=== PATIENT | male | born 1960 | race Caucasian/White ===

== ENCOUNTER 2021-06-10 16:49 | Emergency (ER) | payer OTHER ==
[2021-06-10] MEDS ORDERED: Hydromorphone 1 mg/ml Injection IV ONE ×3 (17:09→19:11)
[2021-06-10] MEDS ORDERED: Hydromorphone 1 mg/ml Injection ONE ×3 (17:11→19:16)
[2021-06-10] MEDS ORDERED: Zofran 4 MG/2 ML VIAL ONE (17:12)
[2021-06-10] MEDS ORDERED: Zofran 4 MG/2 ML VIAL IV ONE (17:12)
[2021-06-10 17:23] LABS: Absolute Neutrophil Ct (ANC) 4.94 (1.4-6.9); BASOPHIL % 0.3 % (0.0-0.4); Basophil (Absolute #) 0.03 (0-0.4); Eosinophil % 0.7 % (0.00-5.0); Eosinophil (Absolute #) 0.07 (0-0.5); Hematocrit 41.8 % (42-50); Hemoglobin 13.7 gm/dl (12.5-18.0); Lymphocyte (Absolute #) 3.52 (1.0-4.6); Lymphocytes % 37.6 % (24.0-44.0); Mean Cell Volume 96.5 fl (78-100); Mean Corpuscular Hemoglobin 31.6 pg (26-32); Mean Corpuscular Hgb Concent. 32.8 g/dl (32-36); Mean Platelet Volume 8.7 fl (7.5-11.0); Monocyte (Absolute #) 0.81 (0.0-1.3); Monocytes % 8.6 % (0.0-12.0); Neutrophil % 52.8 % (36.0-66.0); Platelet Count 353 K/mm3 (150-450); Red Blood Count 4.33 M/mm3 (4.1-5.6); Red Cell Distribution Width 13.8 % (11.5-14.0); White Blood Count 9.4 K/mm3 (4.0-10.5)
[2021-06-10 17:40] LABS: ALBUMIN 4.6 g/dL (3.5-5.0); ALKALINE PHOSPHATASE 142 U/L (38-126); ANION GAP 13.5 MEQ/L (5-15); BLOOD UREA NITROGEN 15 mg/dL (9-20); CHLORIDE 107 mmol/L (98-107); Calcium 9.3 mg/dL (8.4-10.2); Carbon Dioxide 23 mmol/L (22-30); Creatinine 1 1.13 mg/dL (0.66-1.25); EST GLOMERULAR FILTRATION RATE > 60.0 ML/MIN; Glucose 142 mg/dL (74-106); SGOT/AST 29 U/L (17-59); SGPT/ALT 11 U/L (0-50); SODIUM 140 mmol/L (137-145); Total Protein 7.4 g/dL (6.3-8.2)
[2021-06-10 18:16] VITALS: O2SAT 97
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
[2021-06-10 20:16] VITALS: BP 142/96; PULSE 64
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
== END 2021-06-10 20:16 | disposition home or self-care (01) ==
LOC: ED 16:49
DX: S42.031A Displaced fracture of lateral end of right clavicle, initial encounter for closed fracture (principal); V29.88XA Motorcycle rider (driver) (passenger) injured in other specified transport accidents, initial encounter; Y93.89 Activity, other specified; Y92.89 Other specified places as the place of occurrence of the external cause; S20.412A Abrasion of left back wall of thorax, initial encounter; M25.512 Pain in left shoulder; M79.671 Pain in right foot
CPT/HCPCS: 36415; 70450; 72125; 73030; 73630; 80053; 85025; 96374; 96375; 96376; 99284; J1170; J2405; L3650; L4386

== ENCOUNTER 2022-04-04 09:09 | Emergency (ER) | payer OTHER ==
[2022-04-04] MEDS ORDERED: SUBLIMAZE 100 MCG/2 ML IV ONE ×2 (09:21→12:32)
[2022-04-04] MEDS ORDERED: Zofran 4 MG/2 ML VIAL IV ONE (09:22)
[2022-04-04] MEDS ORDERED: Sodium Chloride 0.9% 1000 ML 1,000 ML IV STA ×2 (09:25→13:46)
[2022-04-04] MEDS ORDERED: Zofran 4 MG/2 ML VIAL ONE (09:31)
[2022-04-04] MEDS ORDERED: SUBLIMAZE 100 MCG/2 ML ONE ×2 (09:32→12:25)
[2022-04-04] MEDS ORDERED: Sodium Chloride 0.9% 1000 ML 1,000 ML ONE ×2 (09:32→13:45)
[2022-04-04 09:42] LABS: Hematocrit 41.7 % (42-50); Hemoglobin 13.4 g/dL (12.5-18.0); Mean Cell Volume 95.9 fL (78-100); Mean Corpuscular Hemoglobin 30.8 pg (26-32); Mean Corpuscular Hgb Concent. 32.1 g/dL (32-36); Platelet Count 582 x10^3/uL (150-450); Red Blood Count 4.35 x10^6/uL (4.1-5.6); Red Cell Distribution Width 13.8 % (11.5-14.0); White Blood Count 10.2 x10^3/uL (4.0-10.5)
--- NOTE | 2022-04-04 09:45 | ERPHSYRPT ---
- History of Present Illness Time Seen by Provider: 04/04/22 09:15 Historian: patient, family Exam Limitations: no limitations Patient Subjective Stated Complaint: abd pain Triage Nursing Assessment: pt to ED abd pain onset this morning that woke him from sleep. pt just DC from [facility] last week with Abd Aortic Thrombis and was stented during that stay. scheduled for f/u appt and imaging April 17. pt has been without complaints until this morning. mild constipation 2 days ago, relieved with stool softeners. LBM last night. rates 10/10 when pain comes, 0/10 between. intermittent every few minutes with no preceding factors. Physician History: Patient is a 61-year-old male who presents with colicky severe abdominal pain. Approximately a week ago he was at [facility] where he underwent an embo lectomy of the superior mesenteric artery and the subsequent placement of a stent. He was doing well until this morning when he awoke with episodes of severe epigastric and abdominal pain. The does report that at the time he left there was still some blockages and some clots remaining. Him between episodes of pain he is relatively comfortable. He had his last bowel movement last evening after some stool softeners. He has passed no gas or had any bowel movement this morning per the patient. He does have some nausea but no vomiting. Timing/Duration: today Activities at Onset: none Abdominal Pain Onset Location: epigastric, generalized abdomen Pain Radiation: no radiation Severity of Pain-Max: severe Severity of Pain-Current: severe Modifying Factors: Improves With: nothing Associated Symptoms: nausea Previous symptoms: same symptoms as today Allergies/Adverse Reactions: No Known Drug Allergies Allergy (Unverified 06/10/21 17:09) Home Medications: Acetaminophen 500 mg PO DAILY PRN PRN 04/04/22 [History] Albuterol Sulfate [Albuterol Sulfate Hfa] 8.5 gm IH BID PRN 04/04/22 [History] Atorvastatin Calcium [Lipitor] 10 mg PO DAILY 04/04/22 [History] Calcium Carbonate [Tums] 200 mg PO DAILY PRN PRN 04/04/22 [History] Clopidogrel Bisulfate [Plavix] 75 mg PO DAILY 04/04/22 [History] PANTOPRAZOLE 40 mg Tablet [Protonix 40MG Tablet] 40 mg PO DAILY 04/04/22 [History] Rivaroxaban 10 mg Tablet [Xarelto 10 mg Tablet] 20 mg PO DAILY 04/04/22 [History] Rivaroxaban [Xarelto] 15 mg PO BID 04/04/22 [History] Hx Tetanus, Diphtheria Vaccination/Date Given: Yes Hx Influenza Vaccination/Date Given: Yes Hx Pneumococcal Vaccination/Date Given: No Immunizations Up to Date: Yes Travel Risk - International Travel Have you traveled outside of the country in past 3 weeks: No - Coronavirus Screening Are you exhibiting any of the following symptoms?: No Close contact with a COVID-19 positive Pt in past 14-21 Days: No - Vaccine Status Have you recieved a Covid-19 vaccination: Yes 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 - Vaccination Dates Date of 2cond Vaccination (if applicable): 2020 - Review of Systems Constitutional: No Fever, No Chills Eyes: No Symptoms Ears, Nose, & Throat: No Symptoms Respiratory: No Cough, No Dyspnea Cardiac: No Chest Pain, No Edema, No Syncope Abdominal/Gastrointestinal: Abdominal Pain, Nausea, No Vomiting, No Diarrhea Genitourinary Symptoms: No Dysuria Musculoskeletal: No Back Pain, No Neck Pain Skin: No Rash Neurological: No Dizziness, No Focal Weakness, No Sensory Changes Psychological: No Symptoms Endocrine: No Symptoms All Other Systems: Reviewed and Negative - Past Medical History Pertinent Past Medical History: Yes Neurological History: No Pertinent History ENT History: No Pertinent History Cardiac History: High Cholesterol, Peripheral Vascular Disease Respiratory History: COPD Endocrine Medical History: No Pertinent History Musculoskeletal History: Fractures GI Medical History: Other Other Medical History: PMHX: REPORTS PROBLEMS WITH CIRCULATION IN LEFT LOWER LEG. abd aortic thrombus- stented 03/2022 - Past Surgical History Past Surgical History: Yes Gastrointestinal: Other Musculoskeletal: Orthopedic Surgery Other Surgical History: L shoulder procedure 2020. abd stent (mesentary) x1 and embolectomy - Social History Smoking Status: Former smoker Exposure to second hand smoke: Yes Drug Use: none Patient Lives Alone: No - Nursing Vital Signs Nursing Vital Signs: Initial Vital Signs Temperature 97.7 F 04/04/22 09:14 Pulse Rate 97 H 04/04/22 09:14 Respiratory Rate 25 H 04/04/22 09:14 O2 Sat by Pulse Oximetry 100 04/04/22 09:14 Pain Scale Pain Intensity 0 - Physical Exam General Appearance: moderate distress Eye Exam: PERRL/EOMI, eyes nml inspection Ears, Nose, Throat Exam: normal ENT inspection, pharynx normal, moist mucous membranes Neck Exam: normal inspection, non-tender, supple, full range of motion Respiratory Exam: normal breath sounds Cardiovascular Exam: regular rate/rhythm, normal heart sounds Gastrointestinal/Abdomen Exam: tenderness, distention, guarding, rebound, other (Bowel sounds are present with periods of rushes) Back Exam: normal inspection Extremity Exam: normal inspection Neurologic Exam: oriented x 3, cooperative SpO2: 100 - Course Nursing assessment & vital signs reviewed: Yes EKG Interpreted by Me: RATE (99), NORMAL AXIS, NORMAL INTERVALS, NORMAL QRS, NORMAL ST-T - CT Exams Abdomen/Pelvis CT Interpretation: Other (Dilated loops of small bowel fluid-filled with circumferential wall thickening and enhancement rule out ileus versus gastroenteritis) Ordered Tests: Active Orders 24 hr Category Date Time Status EKG-ER Only STAT Care 04/04/22 09:20 Active IV Insertion STAT Care 04/04/22 09:25 Active ABDOMEN AND PELVIS W CONTRAST [CT] Stat Exams 04/04/22 09:19 Completed AMYLASE Stat Lab 04/04/22 09:25 Completed CBC W DIFF Stat Lab 04/04/22 09:25 Completed CMP Stat Lab 04/04/22 09:25 Completed LIPASE Stat Lab 04/04/22 09:25 Completed Lactic Acid Stat Lab 04/04/22 09:50 Completed Manual Differential NC Stat Lab 04/04/22 09:25 Completed PROTIME WITH INR Stat Lab 04/04/22 09:25 Completed TROPONIN Q3H Lab 04/04/22 09:25 Completed TROPONIN Q3H Lab 04/04/22 12:30 Ordered TROPONIN Q3H Lab 04/04/22 15:30 Ordered TROPONIN Q3H Lab 04/04/22 18:30 Ordered TROPONIN Q3H Lab 04/04/22 21:30 Ordered UA W/RFX CULTURE Stat Lab 04/04/22 Ordered Medication Summary Discontinued Medications Generic Name Dose Route Start Last Admin Trade Name Freq PRN Reason Stop Dose Admin Fentanyl Citrate 100 mcg 04/04/22 09:21 04/04/22 09:33 Fentanyl Citrate 100 Mcg/2 Ml* Vial IV 04/04/22 09:22 100 mcg STAT ONE Administration Fentanyl Citrate Confirm 04/04/22 09:32 Fentanyl Citrate 100 Mcg/2 Ml* Vial Administered 04/04/22 09:33 Dose 100 mcg .ROUTE .STK-MED ONE Sodium Chloride 1,000 mls @ 999 mls/hr 04/04/22 09:25 04/04/22 10:58 Sodium Chloride 0.9% 1000 Ml IV 04/04/22 10:25 Infused .Q1H1M STA Infusion Sodium Chloride Confirm 04/04/22 09:32 Sodium Chloride 0.9% 1000 Ml Administered 04/04/22 09:33 Dose 1,000 mls @ ud .ROUTE .STK-MED ONE Ondansetron HCl 4 mg 04/04/22 09:22 04/04/22 09:33 Ondansetron Hcl 4 Mg/2 Ml Vial IV 04/04/22 09:23 4 mg STAT ONE Administration Ondansetron HCl Confirm 04/04/22 09:31 Ondansetron Hcl 4 Mg/2 Ml Vial Administered 04/04/22 09:32 Dose 4 mg .ROUTE .STK-MED ONE Lab/Rad Data: Laboratory Result Diagrams 04/04/22 09:25 04/04/22 09:25 Laboratory Results 04/04/22 04/04/22 04/04/22 Range/Units 09:50 09:25 09:25 WBC (4.0-10.5) x10^3/uL RBC (4.1-5.6) x10^6/uL Hgb (12.5-18.0) g/dL Hct (42-50) % MCV (78-100) fL MCH (26-32) pg MCHC (32-36) g/dL RDW (11.5-14.0) % Plt Count (150-450) x10^3/uL MPV (7.5-11.0) fL Segmented Neutrophils (36.-66.) % Lymphocytes (Manual) (24-44) % Monocytes (Manual) (0.0-12.0) % Atypical Lymphocytes % Platelet Estimate (NORMAL) RBC Morphology Anisocytosis PT 13.5 H (9.4-12.5) SECONDS INR 1.30 (0.8-3.0) Sodium (137-145) mmol/L Potassium (3.5-5.1) mmol/L Chloride (98-107) mmol/L Carbon Dioxide (22-30) mmol/L Anion Gap (5-15) MEQ/L BUN (9-20) mg/dL Creatinine (0.66-1.25) mg/dL Estimated GFR ML/MIN Glucose (74-106) mg/dL Lactic Acid 1.8 (0.4-2.0) Calcium (8.4-10.2) mg/dL Total Bilirubin (0.2-1.3) mg/dL AST (17-59) U/L ALT (0-50) U/L Alkaline Phosphatase (38-126) U/L Troponin I < 0.012 (0.000-0.034) ng/mL Serum Total Protein (6.3-8.2) g/dL Albumin (3.5-5.0) g/dL Amylase (30-110) U/L Lipase (23-300) U/L 04/04/22 04/04/22 Range/Units 09:25 09:25 WBC 10.2 (4.0-10.5) x10^3/uL RBC 4.35 (4.1-5.6) x10^6/uL Hgb 13.4 (12.5-18.0) g/dL Hct 41.7 L (42-50) % MCV 95.9 (78-100) fL MCH 30.8 (26-32) pg MCHC 32.1 (32-36) g/dL RDW 13.8 (11.5-14.0) % Plt Count 582 H (150-450) x10^3/uL MPV 8.0 (7.5-11.0) fL Segmented Neutrophils 47 (36.-66.) % Lymphocytes (Manual) 43 (24-44) % Monocytes (Manual) 7 (0.0-12.0) % Atypical Lymphocytes 3 % Platelet Estimate INCREASED (NORMAL) RBC Morphology ABNORMAL Anisocytosis 1+ PT (9.4-12.5) SECONDS INR (0.8-3.0) Sodium 139 (137-145) mmol/L Potassium 5.0 (3.5-5.1) mmol/L Chloride 104 (98-107) mmol/L Carbon Dioxide 26 (22-30) mmol/L Anion Gap 13.6 (5-15) MEQ/L BUN 10 (9-20) mg/dL Creatinine 1.05 (0.66-1.25) mg/dL Estimated GFR > 60.0 ML/MIN Glucose 104 (74-106) mg/dL Lactic Acid (0.4-2.0) Calcium 9.3 (8.4-10.2) mg/dL Total Bilirubin 0.70 (0.2-1.3) mg/dL AST 29 (17-59) U/L ALT 21 (0-50) U/L Alkaline Phosphatase 126 (38-126) U/L Troponin I (0.000-0.034) ng/mL Serum Total Protein 6.3 (6.3-8.2) g/dL Albumin 3.5 (3.5-5.0) g/dL Amylase 87 (30-110) U/L Lipase 107 (23-300) U/L - Progress Progress: unchanged - Departure Departure Disposition: Transfer (Since the patient had a procedure recently at [facility] involving stenting of the superior mesenteric artery and now has pain and perhaps an ileus in that area we elected to call and transfer the patient there of the general surgery service excepting) Clinical Impression: Abdominal pain Condition: Fair Critical Care Time: No Referrals: HOSPITAL,'S [Primary Care Provider] - Follow up/PCP as directed
[2022-04-04 10:00] LABS: ALBUMIN 3.5 g/dL (3.5-5.0); BLOOD UREA NITROGEN 10 mg/dL (9-20); CHLORIDE 104 mmol/L (98-107); Calcium 9.3 mg/dL (8.4-10.2); Carbon Dioxide 26 mmol/L (22-30); Creatinine 1 1.05 mg/dL (0.66-1.25); EST GLOMERULAR FILTRATION RATE > 60.0 ML/MIN; Glucose 104 mg/dL (74-106); SGOT/AST 29 U/L (17-59); SGPT/ALT 21 U/L (0-50); SODIUM 139 mmol/L (137-145); Total Protein 6.3 g/dL (6.3-8.2)
[2022-04-04 10:01] LABS: ALKALINE PHOSPHATASE 126 U/L (38-126); AMYLASE 87 U/L (30-110); ANION GAP 13.6 MEQ/L (5-15); LIPASE 107 U/L (23-300)
--- NOTE | 2022-04-04 10:23 | XRAY ---
Indication: Abdomen pain. Patient reports recent SMA embolectomy with stent placement one week ago. Multiple contiguous axial images obtained through the abdomen and pelvis using 80 cc Isovue 370 contrast. Comparison: None Lung bases demonstrates pulmonary emphysema with minimal bibasilar fibrosis/scarring. No infiltrate or effusion. Heart not enlarged. Small hiatal hernia. Noncontrasted stomach and bowel loops appear nonobstructed. Several ileal and lesser degree jejunal bowel loops are mildly fluid distended up to 3.3 cm diameter with mild circumferential wall thickening/enhancement and fluid leveling, ileus versus enteritis. Normal appendix. No free fluid/air or portal air. Right lobe liver demonstrates 2 hemangiomas, largest measuring at least 5.5 x 2.8 cm. Tiny splenic calcified granulomas. Remaining liver, gallbladder, pancreas, spleen, adrenal glands, kidneys, ureters, and bladder are unremarkable. Mild scattered aortoiliac calcifications without AAA. Patent SMA stent graft. No AAA or pathologic retroperitoneal lymphadenopathy. Osseous structures intact with minimal degenerative changes throughout the thoracolumbar spine. Impression: 1. Fluid distended small bowel loops with circumferential wall thickening/enhancement as detailed. Rule out ileus versus enteritis. 2. Scattered arteriosclerotic disease with patent SMA stent graft. 3. Incidental small hiatal hernia, hepatic hemangiomas, degenerative spondylosis, and old granulomatous disease.
[2022-04-04 10:32] LABS: INR 1.3 (0.8-3.0); PROTIME 13.5 SECONDS (9.4-12.5)
[2022-04-04 10:58] LABS: ANISOCYTOSIS 1+; ATYPICAL LYMPHS 3 %; Lymphocytes 43 % (24-44); Monocyte 7 % (0.0-12.0); Platelet Estimate INCREASED (NORMAL); Total Cells Counted 100
[2022-04-04 12:44] LABS: Appearance CLEAR (CLEAR); Bacteria RARE /HPF (NEGATIVE); Bilirubin NEGATIVE (NEGATIVE); Glucose NEGATIVE (NEGATIVE); Ketones NEGATIVE (NEGATIVE); Mucus SLIGHT /HPF (NEGATIVE)
[2022-04-04 12:45] LABS: Dipstick done @ ? MAIN LAB; Nitrite NEGATIVE (NEGATIVE); Protein,Urine Dip NEGATIVE (Negative); RBC NEGATIVE Ery/ul (0-5); Urine Cultured Indicated? NO; Urobilinogen 0.2 mg/dL (0-1)
[2022-04-04 13:11] LABS: INFLUENZA A NEGATIVE (NEGATIVE); INFLUENZA B NEGATIVE (NEGATIVE); RESPIRATORY SYNCTIAL VIRUS NEGATIVE (Negative); SARS-CoV-2 Xpert Express NEGATIVE (NEGATIVE)
[2022-04-04] MEDS ORDERED: Hydromorphone 1 mg/ml Injection IV ONE ×2 (14:18→16:31)
[2022-04-04] MEDS ORDERED: Hydromorphone 1 mg/ml Injection ONE ×2 (14:20→16:34)
[2022-04-04] MEDS ORDERED: PLAVIX Tablet PO ONE (16:31)
[2022-04-04] MEDS ORDERED: PLAVIX Tablet ONE (16:34)
[2022-04-04] MEDS ORDERED: XARELTO 10 MG TABLET PO ONE (16:45)
[2022-04-04 18:08] VITALS: BP 132/79; PULSE 81; O2SAT 99
== END 2022-04-04 18:09 | disposition short-term general hospital (02) ==
LOC: ED 09:09
DX: R10.84 Generalized abdominal pain (principal); R10.13 Epigastric pain; R11.0 Nausea; E78.5 Hyperlipidemia, unspecified; I73.9 Peripheral vascular disease, unspecified; J44.9 Chronic obstructive pulmonary disease, unspecified; Z79.01 Long term (current) use of anticoagulants; Z79.02 Long term (current) use of antithrombotics/antiplatelets; Z79.899 Other long term (current) drug therapy; Z20.828 Contact with and (suspected) exposure to other viral communicable diseases
CPT/HCPCS: 0241U; 36000; 36415; 74177; 80053; 81015; 82150; 83605; 83690; 84484; 85025; 85610; 93005; 96374; 96375; 96376; 99285; J1170; J2405; J3010; A9270-GY

== ENCOUNTER 2022-04-14 00:29 | Emergency (ER) | payer OTHER ==
--- NOTE | 2022-04-14 00:40 | ERPHSYRPT ---
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 On 04/04/2022 patient presented to this emergency department with abdominal pain. CAT scan of the abdomen pelvis at that time showed fluid-filled, with circumferential wall thickening in enhancement small bowel. Patient was sent back to [facility] where he under went medical, nonoperative therapy. Since she has been discharged to home he has had some good days. He slept well on the evening of 04/12/2022. He had a pretty good day most the day today in terms of no significant pain. However approximately 2 hours prior to arrival to the emergency department, he had significant generalized abdominal pain with multiple episodes of vomiting. Patient has a history of elevated cholesterol, gastroesophageal reflux disease, peripheral vascular disease and COPD. The accepting general surgeon at [facility] on 04/04/[address] Cook. Patient has lost 20 pounds in a month Timing/Duration: today Quality: cramping, sharpness, stabbing Abdominal Pain Onset Location: generalized abdomen Pain Radiation: no radiation Severity of Pain-Max: moderate Severity of Pain-Current: moderate Modifying Factors: Improves With: other (Eating worsens) Associated Symptoms: diaphoresis, loss of appetite, nausea, vomiting, No chest pain Previous symptoms: same symptoms as today, recently seen, recent h ospitalization, recently treated Allergies/Adverse Reactions: No Known Drug Allergies Allergy (Unverified 06/10/21 17:09) Home Medications: Acetaminophen 500 mg PO DAILY PRN PRN 04/04/22 [History] Albuterol Sulfate [Albuterol Sulfate Hfa] 8.5 gm IH BID PRN 04/04/22 [History] Atorvastatin Calcium [Lipitor] 10 mg PO DAILY 04/04/22 [History] Calcium Carbonate [Tums] 200 mg PO DAILY PRN PRN 04/04/22 [History] Clopidogrel Bisulfate [Plavix] 75 mg PO DAILY 04/04/22 [History] PANTOPRAZOLE 40 mg Tablet [Protonix 40MG Tablet] 40 mg PO DAILY 04/04/22 [History] Rivaroxaban 10 mg Tablet [Xarelto 10 mg Tablet] 20 mg PO DAILY 04/04/22 [History] Rivaroxaban [Xarelto] 15 mg PO BID 04/04/22 [History] Hx Tetanus, Diphtheria Vaccination/Date Given: Yes Hx Influenza Vaccination/Date Given: Yes Hx Pneumococcal Vaccination/Date Given: No Travel Risk - International Travel Have you traveled outside of the country in past 3 weeks: No - Coronavirus Screening Are you exhibiting any of the following symptoms?: No Close contact with a COVID-19 positive Pt in past 14-21 Days: No - Vaccine Status Have you recieved a Covid-19 vaccination: Yes Coil Inspector: Moderna - Vaccination Dates Date of 2cond Vaccination (if applicable): 2020 - Review of Systems Constitutional: No Symptoms Eyes: No Symptoms Ears, Nose, & Throat: No Symptoms Respiratory: No Symptoms Cardiac: No Symptoms Abdominal/Gastrointestinal: Abdominal Pain, Nausea, Vomiting, No Diarrhea, No Constipation Genitourinary Symptoms: No Symptoms Musculoskeletal: No Symptoms Skin: No Symptoms Neurological: No Symptoms Psychological: No Symptoms Endocrine: No Symptoms Hematologic/Lymphatic: No Symptoms Immunological/Allergic: No Symptoms All Other Systems: Reviewed and Negative - Past Medical History Pertinent Past Medical History: Yes Neurological History: No Pertinent History ENT History: No Pertinent History Cardiac History: High Cholesterol, Peripheral Vascular Disease Respiratory History: COPD Endocrine Medical History: No Pertinent History Musculoskeletal History: Fractures GI Medical History: Other Other Medical History: PMHX: REPORTS PROBLEMS WITH CIRCULATION IN LEFT LOWER LEG. abd aortic thrombus- stented 03/2022 - Past Surgical History Past Surgical History: Yes Gastrointestinal: Other Musculoskeletal: Orthopedic Surgery Other Surgical History: L shoulder procedure 2020. abd stent (mesentary) x1 and embolectomy - Social History Smoking Status: Former smoker Exposure to second hand smoke: Yes Drug Use: none Patient Lives Alone: No - Nursing Vital Signs Nursing Vital Signs: Initial Vital Signs Temperature 97.7 F 04/14/22 00:40 Pulse Rate 92 H 04/14/22 00:40 Respiratory Rate 18 04/14/22 00:40 Blood Pressure 225/70 04/14/22 00:40 O2 Sat by Pulse Oximetry 99 04/14/22 00:40 Pain Scale Pain Intensity 10 - Physical Exam General Appearance: moderate distress, alert, anxiety Eye Exam: PERRL/EOMI, eyes nml inspection Ears, Nose, Throat Exam: normal ENT inspection, moist mucous membranes Neck Exam: normal inspection, non-tender, supple, full range of motion Respiratory Exam: normal breath sounds, lungs clear, No chest tenderness, No respiratory distress Cardiovascular Exam: regular rate/rhythm, normal heart sounds, normal peripheral pulses Gastrointestinal/Abdomen Exam: soft, normal bowel sounds, tenderness (Pain out of proportion to exam), guarding, rebound Rectal Exam: not done Back Exam: normal inspection, normal range of motion, No CVA tenderness Extremity Exam: normal inspection, normal range of motion, pelvis stable Neurologic Exam: alert, oriented x 3, cooperative, stem maker II-XII nml as tested, normal mood/affect, nml cerebellar function, nml station & gait, sensation nml Skin Exam: normal color, warm, dry Lymphatic Exam: No adenopathy SpO2 Interpretation: normal O2 Delivery: Room Air - Course Nursing assessment & vital signs reviewed: Yes Ordered Tests: Active Orders 24 hr Category Date Time Status IV Insertion STAT Care 04/14/22 00:51 Active ABDOMEN AND PELVIS W/0 CONTRAS [CT] Stat Exams 04/14/22 00:51 Taken AMYLASE Stat Lab 04/14/22 01:19 Completed CBC W DIFF Stat Lab 04/14/22 01:19 Completed CMP Stat Lab 04/14/22 01:19 Completed LIPASE Stat Lab 04/14/22 01:19 Completed Lactic Acid Stat Lab 04/14/22 01:00 Completed UA W/RFX CULTURE Stat Lab 04/14/22 Ordered Medication Summary Discontinued Medications Generic Name Dose Route Start Last Admin Trade Name Lyly PRN Reason Stop Dose Admin Hydromorphone HCl 1 mg 04/14/22 00:51 04/14/22 01:49 Hydromorphone 1 Mg/1ml Inj 1 Mg/Ml Syringe IV 04/14/22 00:52 1 mg STAT ONE Administration Hydromorphone HCl Confirm 04/14/22 01:47 Hydromorphone 1 Mg/1ml Inj 1 Mg/Ml Syringe Administered 04/14/22 01:48 Dose 1 mg .ROUTE .STK-MED ONE Sodium Chloride 1,000 mls @ 999 mls/hr 04/14/22 00:51 04/14/22 01:50 Sodium Chloride 0.9% 1000 Ml IV 04/14/22 01:51 999 mls/hr .Q1H1M STA Administration Sodium Chloride Confirm 04/14/22 01:47 Sodium Chloride 0.9% 1000 Ml Administered 04/14/22 01:48 Dose 1,000 mls @ ud .ROUTE .[employer] ONE Prochlorperazine Edisylate 10 mg 04/14/22 00:51 04/14/22 01:48 Prochlorperazine Edisylate 10 Mg/2 Ml Vial IV 04/14/22 00:52 10 mg STAT ONE Administration Prochlorperazine Edisylate Confirm 04/14/22 01:47 Prochlorperazine Edisylate 10 Mg/2 Ml Vial Administered 04/14/22 01:48 Dose 10 mg .ROUTE .[employer] Lab/Rad Data: Laboratory Result Diagrams 04/14/22 01:19 04/14/22 01:19 Laboratory Results 04/14/22 04/14/22 04/14/22 Range/Units 01:19 01:19 01:00 WBC 12.1 H (4.0-10.5) x10^3/uL RBC 3.84 L (4.1-5.6) x10^6/uL Hgb 11.9 L (12.5-18.0) g/dL Hct 36.8 L (42-50) % MCV 95.8 (78-100) fL MCH 31.0 (26-32) pg MCHC 32.3 (32-36) g/dL RDW 14.2 H (11.5-14.0) % Plt Count 412 (150-450) x10^3/uL MPV 8.2 (7.5-11.0) fL Gran % 66.4 H (36.0-66.0) % Immature Gran % (Auto) 0.5 H (0.00-0.4) % Nucleat RBC Rel Count 0.0 (0.00-0.1) % Eos # (Auto) 0.09 (0-0.5) x10^3/uL Immature Gran # (Auto) 0.06 H (0.00-0.03) x10^3u/L Absolute Lymphs (auto) 3.18 (1.0-4.6) x10^3/uL Absolute Monos (auto) 0.71 (0.0-1.3) x10^3/uL Absolute Nucleated RBC 0.00 (0.00-0.01) x10^3u/L Lymphocytes % 26.3 (24.0-44.0) % Monocytes % 5.9 (0.0-12.0) % Eosinophils % 0.7 (0.00-5.0) % Basophils % 0.2 (0.0-0.4) % Absolute Granulocytes 8.02 H (1.4-6.9) x10^3/uL Basophils # 0.03 (0-0.4) x10^3/uL Sodium 137 (137-145) mmol/L Potassium 4.0 (3.5-5.1) mmol/L Chloride 105 (98-107) mmol/L Carbon Dioxide 25 (22-30) mmol/L Anion Gap 10.2 (5-15) MEQ/L BUN 12 (9-20) mg/dL Creatinine 0.98 (0.66-1.25) mg/dL Estimated GFR > 60.0 ML/MIN Glucose 132 H (74-106) mg/dL Lactic Acid 1.2 (0.4-2.0) Calcium 8.5 (8.4-10.2) mg/dL Total Bilirubin 0.50 (0.2-1.3) mg/dL AST 26 (17-59) U/L ALT 20 (0-50) U/L Alkaline Phosphatase 88 (38-126) U/L Serum Total Protein 5.8 L (6.3-8.2) g/dL Albumin 3.1 L (3.5-5.0) g/dL Amylase 82 (30-110) U/L Lipase 82 (23-300) U/L - Progress Progress: improved, pain not gone completely Progress Note: 04/14/22 02:29 CAT scan of the abdomen and pelvis without contrast shows several mild distended and inflamed small bowel loops in the right lower quadrant with associated mesenteric edema. The distribution of the finding is similar to the previous exam. Suspect enteritis. 04/14/22 03:13 Medical decision making: This patient has ischemic enteritis. He is continue to lose weight. He is unable to eat without pain. He had significant vomiting tonight. I contacted [facility] general surgery on-call Dr. Huffman, who accepted the patient. The patient desires to be transferred to [facility]. Counseled pt/family regarding: lab results, diagnosis, rad results - Departure Departure Disposition: Transfer Clinical Impression: Ischemic enteritis Condition: Stable Critical Care Time: No Referrals: [facility]OS[facility],'[facility] [Primary Care Provider] - Follow up/PCP as directed
[2022-04-14] MEDS ORDERED: Compazine 10 MG/2 ML IV ONE (00:51)
[2022-04-14] MEDS ORDERED: Sodium Chloride 0.9% 1000 ML 1,000 ML IV STA (00:51)
[2022-04-14] MEDS ORDERED: Hydromorphone 1 mg/ml Injection IV ONE ×2 (00:51→04:01)
[2022-04-14 01:21] LABS: Absolute Neutrophil Ct (ANC) 8.02 x10^3/uL (1.4-6.9); Basophil (Absolute #) 0.03 x10^3/uL (0-0.4); Eosinophil % 0.7 % (0.00-5.0); Eosinophil (Absolute #) 0.09 x10^3/uL (0-0.5); Hematocrit 36.8 % (42-50); Hemoglobin 11.9 g/dL (12.5-18.0); Lymphocyte (Absolute #) 3.18 x10^3/uL (1.0-4.6); Lymphocytes % 26.3 % (24.0-44.0); Mean Cell Volume 95.8 fL (78-100); Mean Corpuscular Hgb Concent. 32.3 g/dL (32-36); Mean Platelet Volume 8.2 fL (7.5-11.0); Monocyte (Absolute #) 0.71 x10^3/uL (0.0-1.3); Monocytes % 5.9 % (0.0-12.0); Neutrophil % 66.4 % (36.0-66.0); Platelet Count 412 x10^3/uL (150-450); Red Blood Count 3.84 x10^6/uL (4.1-5.6); Red Cell Distribution Width 14.2 % (11.5-14.0); White Blood Count 12.1 x10^3/uL (4.0-10.5)
[2022-04-14 01:34] LABS: ALBUMIN 3.1 g/dL (3.5-5.0); ALKALINE PHOSPHATASE 88 U/L (38-126); AMYLASE 82 U/L (30-110); ANION GAP 10.2 MEQ/L (5-15); BLOOD UREA NITROGEN 12 mg/dL (9-20); CHLORIDE 105 mmol/L (98-107); Calcium 8.5 mg/dL (8.4-10.2); Carbon Dioxide 25 mmol/L (22-30); Creatinine 1 0.98 mg/dL (0.66-1.25); EST GLOMERULAR FILTRATION RATE > 60.0 ML/MIN; Glucose 132 mg/dL (74-106); LIPASE 82 U/L (23-300); SGOT/AST 26 U/L (17-59); SGPT/ALT 20 U/L (0-50); SODIUM 137 mmol/L (137-145); Total Protein 5.8 g/dL (6.3-8.2)
[2022-04-14] MEDS ORDERED: Compazine 10 MG/2 ML ONE (01:47)
[2022-04-14] MEDS ORDERED: Hydromorphone 1 mg/ml Injection ONE ×2 (01:47→04:04)
[2022-04-14] MEDS ORDERED: Sodium Chloride 0.9% 1000 ML 1,000 ML ONE ×2 (01:47→03:26)
[2022-04-14] MEDS ORDERED: PIPERACILLIN/TAZOBACTAM 3.375 GM in Sodium Chloride 100ML MINI-BAG PLUS 100 ML IV ONE (03:14)
[2022-04-14] MEDS ORDERED: Sodium Chloride 0.9% 1000 ML 1,000 ML IV SCH (03:15)
[2022-04-14] MEDS ORDERED: PIPERACILLIN/TAZOBACTAM IV ONE ×3 (03:26→03:27)
[2022-04-14] MEDS ORDERED: Sodium Chloride 100ML MINI-BAG PLUS 100 ML IV ONE (03:27)
[2022-04-14 04:25] VITALS: BP 158/89; PULSE 79; O2SAT 86
--- NOTE | 2022-04-14 07:02 | XRAY ---
Indication: Severe lower abdomen pain. Recent SMA embolization with stent placement. Multiple contiguous axial images obtained through the abdomen and pelvis without contrast. Comparison: April 04, 2022. Lung bases again demonstrates pulmonary emphysema with minimal bibasilar dependent atelectasis. Heart not enlarged. Stable small hiatal hernia. Noncontrasted stomach and bowel loops nonobstructed. Again several ileal bowel loops are mildly fluid distended with mild circumferential wall thickening and stranding favoring enteritis. No free fluid/air or portal air. Normal appendix. Stable right lobe hepatic hemangioma and tiny splenic calcified granulomas. There remains mild scattered aortoiliac calcifications without AAA. Stable SMA stent graft. Lack of IV contrast precludes evaluation for stent patency. Remaining liver, gallbladder, pancreas, spleen, adrenal glands, kidneys, ureters, and bladder are unremarkable for noncontrast exam. Impression: 1. Again fluid distended ileal bowel loops with wall thickening and stranding favoring enteritis. 2. Stable small hiatal hernia, hepatic hemangiomas, arteriosclerotic disease with SMA stent graft, and old granulomatous disease. Comment: Preliminary interpretation made by C. No critical discrepancy.
== END 2022-04-14 04:30 | disposition short-term general hospital (02) ==
LOC: ED 00:29
DX: K55.9 Vascular disorder of intestine, unspecified (principal); R10.84 Generalized abdominal pain; R11.2 Nausea with vomiting, unspecified; E78.5 Hyperlipidemia, unspecified; J44.9 Chronic obstructive pulmonary disease, unspecified; Z79.01 Long term (current) use of anticoagulants; Z79.02 Long term (current) use of antithrombotics/antiplatelets; Z79.899 Other long term (current) drug therapy
CPT/HCPCS: 36000; 36415; 74176; 80053; 82150; 83605; 83690; 85025; 96374; 96375; 96376; 99285; J1170